=== PATIENT | female | born 1955 | race Caucasian/White ===

== ENCOUNTER 2021-02-13 12:30 | Emergency (ER) | payer BC, OTHER ==
[2021-02-13 12:52] VITALS: BP 117/59; PULSE 91; TEMP 98.2; BMI 22.4
== END 2021-02-13 14:11 | disposition home or self-care (01) ==
LOC: FER 12:30
DX: S09.90XA Unspecified injury of head, initial encounter (principal); R51.9 Headache, unspecified; W19.XXXA Unspecified fall, initial encounter; Y92.9 Unspecified place or not applicable
CPT/HCPCS: 70450-TC; 99284-25